=== PATIENT | female | born 1975 | race Caucasian/White ===

== ENCOUNTER → 2019-09-08 09:22 | Outpatient (CLI) | payer MEDICAID, SELFPAY ==
[2019-08-24 11:42] VITALS: BMI 46.7
--- NOTE | 2019-09-08 09:23 | US_ITS ---
STUDY: ULTRASOUND BREAST - LEFT REASON FOR EXAM: Female, 44 years old. Left breast mastitis. TECHNIQUE: Axial and longitudinal images of the LEFT breast were performed with a high resolution ultrasound transducer. # OF IMAGES: 42 COMPARISON: Comparison is made with prior mammogram done earlier today. FINDINGS: LEFT Breast: The palpable abnormality corresponds to a 5 mm x 9 mm x 5 mm cyst at the 12:00 position of the breast at 2 cm from nipple. Dense fibroglandular tissue are seen. Dilated retroareolar areolar ducts. US/Breast Limited Unilateral IMPRESSION: Dilated retroareolar ducts most likely secondary to the mastoiditis. No focal masses seen. 5 mm x 9 mm x 5 mm cyst at the 12:00 position of the breast at 2 cm from the nipple. ASSESSMENT CATEGORY: BIRADS Category 2: Benign. A letter regarding these results will be sent to the patient by the facility within 30 days. Electronically Signed: Fredrick Duong, at 11:21 EDT , Service support ,
--- NOTE | 2019-09-08 09:23 | BI_ITS ---
MAMMOGRAPHY - BILATERAL DIAGNOSTIC REASON FOR EXAM: Female, 44 years old. History of a left mastitis. Patient is on antibiotics. PERTINENT HISTORY: Non-contributory. TECHNIQUE: Digital bilateral breast xenia (3D mammographic acquisition) in the CC and MLO projections. 2-D mediolateral oblique (MLO) and craniocaudad (CC) views of both breasts were obtained. CAD: Full Field Digital Mammography with Computer Added Detection was performed. COMPARISON: None. Baseline examination. FINDINGS: Breast Composition: The breasts are heterogeneously dense, which may obscure small masses. There is a 3.2 cm x 2.4 cm irregular density in the superior lateral portion of the left breast corresponding to the suspicious area. Benign-appearing bilateral axillary lymph nodes. No other significant abnormalities are identified. BI/DIAG MAMM W/CAD, BILAT IMPRESSION: 3.2 cm x 2.4 cm irregular density in the superior lateral portion of the left breast most likely corresponding to the clinical area of mastitis. Correlation with ultrasound is recommended. ASSESSMENT CATEGORY: BIRADS Category 0: Incomplete. Need additional imaging evaluation. A letter regarding these results will be sent to the patient by the facility within 30 days. Approximately 10% of breast cancers are not detected by mammography. A normal mammogram should not delay biopsy of a clinically suspicious abnormality. Electronically Signed: Fredrick Duong, at 11:05 EDT , Service support ,
== END ==
PROVIDERS: Referring Provider Nurse Practitioner Women's Health; Visit Provider Nurse Practitioner Women's Health
DX: N63.20 Unspecified lump in the left breast, unspecified quadrant (principal)
CPT/HCPCS: 76642; 77062; 77066; G0279

== ENCOUNTER → 2019-09-28 | Outpatient (CLI) | payer MEDICAID, SELFPAY ==
[2019-09-28 13:17] VITALS: BMI 46.7
[2019-10-06 14:26] LABS: HPV APTIMA, High Risk Negative (Negative)
== END | disposition home or self-care (01) ==
LOC: LABSPEC 16:44
PROVIDERS: Referring Provider Nurse Practitioner Women's Health; Visit Provider Nurse Practitioner Women's Health
DX: Z12.4 Encounter for screening for malignant neoplasm of cervix (principal)
CPT/HCPCS: 87624; 88175; G0145

== ENCOUNTER 2019-10-03 09:17 | Day surgery (SDC) | payer MEDICAID, SELFPAY ==
[2019-09-12 13:56] VITALS: BMI 46.7
--- NOTE | 2019-09-27 08:51 | HP_ITS ---
Intake Vital Signs 09/12/19 BMI 46.7 09/12/19 Height 5 ft 6 in 09/12/19 Weight: 290 lb 09/12/19 BMI 46.7 09/12/19 BP 161/95 H 09/12/19 Blood Pressure Location Rt brachial 09/12/19 Position Sitting 09/12/19 Respiration 18 09/12/19 Pulse 88 09/12/19 Pulse Source Monitor 09/12/19 Temp 98.8 F 09/12/19 Temp Source Temporal 09/12/19 Pulse Oximetry (%) 96 09/12/19 Oxygen Delivery Method room air Intake Visit Reasons: DIFFUSE CYSTIC MASTOPATHY/ MAMM 09/07 Chief Complaint: NEW left breast pain and swelling [place] Required: No Is patient in pain?: No (On and off Left breast) Allergies No Known Allergies Allergy (Unverified 09/12/19 13:56) Medications NK 09/12/19 [History Confirmed 09/12/19] [facility] Medical History (Updated 09/12/19 @ 13:54 by Damaris Rao) Abnormal mammogram of left breast (Acute) Abnormal ultrasound of breast (Acute) Breast pain, left (Acute) Mastoiditis (Acute) Anxiety (Acute) Surgical History (Updated 09/12/19 @ 13:50 by Damaris Rao) History of tonsillectomy (Acute) Social History (Updated 09/27/19 @ 08:[address] 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 Patient states about 4 weeks ago she did have left breast mastitis and did get antibiotics at that time it was red/hot. Patient denies any other changes to the breast or trauma to the breast. Patient states that still seems a little swollen to her and that area still but there is no redness and there is no pain. Patient also has a family history of colon cancer in her dad at age 67 it was metastatic at that time. Patient has never had a colonoscopy. She states she has bowel movements daily denies any blood. Denies any chronic abdominal pain/nausea or vomiting. ROS General General: No weight change, fatigue, colon cancer or breast cancer Breast Breast: Yes breast enlargement (Mild swelling per patient at 12:00 on the left breast); no nipple discharge or breast pain Gastro Gastrointestinal: No abdominal pain, No nausea or vomiting, No diarrhea, No constipation, No blood in stool, No acid reflux, No hemorrhoids, No ulcers, No gallbladder problem, No black,tarry stools Exam Const General: cooperative, no acute distress, well developed Chest Breast inspection: normal inspection of the breasts, normal inspection of the axillae Breast Palpation: Yes normal palpation of the breasts (Unable to detect any increased swelling at the area about 12:00 from the nipple on the left breast, bedside ultrasound also did not show any obvious changes.), Yes normal palpation of the axillae, Yes no axillary lymphadenopathy, No nipple discharge Assessment & Plan Problems 1. Hx of mastitis Z87.898 2. Family history of malignant neoplasm of colon in first degree relative diagnosed when younger than 60 years of age Z80.0 Plan On exam is mostly like fibrocystic tissue might rest of her breast, patient states it did seem a little less swollen than did even last week. Plan to follow-up with patient and examined this area again in approximately 2 weeks- this may be done at the time of colonoscopy as well. Patient's father dx with colon cancer metastatic to liver diagnosed at age 57. Patient is due for screening colonoscopy. I have discussed the above with the patient. I have offered the patient colonoscopy for evaluation. I have explained the risks/benefits of the procedure and described the procedure. I have discussed the risks with the patient, including but not limited to: infection, bleeding, perforation of the GI tract requiring emergency surgery, inability to complete the procedure, injury to any internal organs, complications of anesthesia, etc. - the patient understands and agrees to proceed. I have answered all the patient's questions to the patient's satisfaction and the patient has no further questions. The patient has been given instructions for the colon cleansing preparation. One day of clears, MiraLAX Dulcolax split prep. Miller Mosesr: [phone] [facility] [address] [place] [address], [place] [address] Office: [phone] Orders Orders: Colonoscopy 09/12/19 Plan Detail Follow Up We will schedule colonoscopy and follow-up with breast exam at that time. Coding Level of Care Code Off vis,new,level 3 Diagnoses Hx of mastitis Z87.898 Family history of malignant neoplasm of colon in first degree relative diagnosed when younger than 60 years of age Z80.0 09/27/19 0851 <Electronically signed by Karoline Verdugo am, MD> Date _ Karoline Zacarias MD I have examined the patient the following changes are noted: Correction patient's father was diagnosed at age 67 with metastatic colon cancer patient still qualifies for early screening. Patient denies any further changes. Karoline Zacarias M.D. Pager: [phone] [facility] [address] [place] [address], [facility], [address] [address] Office: [phone]
[2019-09-28 13:17] VITALS: BMI 46.7
[2019-10-03] VITALS (7 sets, daily range): BP systolic 106–143; BP diastolic 52–71; PULSE 62–83; RESP 16; TEMP 36.2–37.2; O2SAT 92–98; BMI 46.7
[2019-10-03 09:47] LABS: Internal QC Validated? YES +Cl - CLEAR BKGD; Pregnancy, Urine Negative Negative
[2019-10-03] MEDS: Lactated Ringers 1,000 ML 100 ML IV (09:58)
--- NOTE | 2019-10-03 10:15 | COLBX_PTH ---
PATIENT: SASKIA HALEY LOC: EN U#:[id number] AGE/SX: 44/F ROOM: RE10/03/[address]: Dr. Karoline Zacarias MD : 1975 BED: DIS: 10/03/2019 SPEC #: [id number] RECD: 10/03/19 12:52 STATUS: AYAKA JOHN #: [id number] BRYANT: 10/03/19 10:[address]: Karoline Zacarias DEPT: SURGICAL PATHOLOGY RECD BY: Ying Lopez ENTERED: 10/04/19 08:02 SP TYPE: COLON BX OTHR DR: Laure Primary Care Phys Tissues: Sigmoid colon biopsy Procedures: Surgery Specimen Level IV HEADER OPERATION: Colonoscopy (MAC) PRE-OP DIAGNOSIS: Family history of colon cancer TISSUE SUBMITTED: Sigmoid polyp biopsy MICROSCOPIC DIAGNOSIS Sigmoid colon polyp, biopsy: Fragments of tubular adenoma. AM:steffany 10/05/19 MICROSCOPIC DESCRIPTION Slides are reviewed. GROSS DESCRIPTION Received in fixative is one container labeled with the patient's name and designated sigmoid polyp biopsy. The specimen consists of one irregular fragment of light garcia soft tissue that measures 0.4 x 0.3 x 0.1 cm. The specimen is totally submitted in one cassette. / SJ:steffany 10/04/19 TC:5 CPT: 78131
--- NOTE | 2019-10-03 10:50 | OP.CCLET_ITS ---
10/03/2019 No Primary Care Physician Re : Colonoscopy procedure for Arelis Olmstead Dear Care Physician This procedure was performed on Thursday, October 03, 2019. My impressions and recommendations are as follows: Impressions : - One less than 5 mm polyp in the sigmoid colon, removed with a cold biopsy forceps. Resected and retrieved. - The examination was otherwise normal on direct and retroflexion views. Recommendations : - Discharge patient to home. - Resume previous diet. - Continue present medications. - Await pathology results. - Repeat colonoscopy in 3 years for surveillance based on pathology results. My findings are described in the full procedure note, which is enclosed. If I can be of further assistance, please feel free to contact me at Doctor phone number(s): , Work: . Sincerely, MD Karoline Moses MD 10/03/2019 10:49:41 AM This report has been signed electronically.
--- NOTE | 2019-10-03 10:50 | OP.COLON_ITS ---
Patient Name: Arelis Olmstead Procedure Date: 10/03/2019 10:13 AM Date of : 1975 Age: 44 Procedure: Colonoscopy Indications: Colon cancer screening in patient at increased risk: Colorectal cancer in father Providers: Karoline Zacarias MD Referring MD: Ean Vela MD Medicines: Monitored Anesthesia Care Patient Profile: This is a 44 year old female. Last Colonoscopy: none. The patient's first colonoscopy is today. Complications: No immediate complications. Procedure: Pre-Anesthesia Assessment: - Prior to the procedure, a History and Physical was performed, and patient medications and allergies were reviewed. The patient's tolerance of previous anesthesia was also reviewed. The risks and benefits of the procedure and the sedation options and risks were discussed with the patient. All questions were answered, and informed consent was obtained. Prior Anticoagulants: The patient has taken no previous anticoagulant or antiplatelet agents. ASA Grade Assessment: Per anesthesia. After reviewing the risks and benefits, the patient was deemed in satisfactory condition to undergo the procedure. After I obtained informed consent, the scope was passed under direct vision. Throughout the procedure, the patient's blood pressure, pulse, and oxygen saturations were monitored continuously. The pediatric colonoscope was introduced through the anus and advanced to the cecum, identified by the appendiceal orifice, ileocecal valve and palpation. The colonoscopy was performed without difficulty. The patient tolerated the procedure well. The quality of the bowel preparation was good. Scope In: 10:20:49 AM Scope Withdrawal Time 0 hours 12 minutes 1 second Scope Out: 10:38:05 AM Total Procedure Duration Time 0 hours 17 minutes 16 seconds Findings: The perianal and digital rectal examinations were normal. A less than 5 mm polyp was found in the sigmoid colon. The polyp was sessile. The polyp was removed with a cold biopsy forceps. Resection and retrieval were complete. The exam was otherwise without abnormality on direct and retroflexion views. Impression: - One less than 5 mm polyp in the sigmoid colon, removed with a cold biopsy forceps. Resected and retrieved. - The examination was otherwise normal on direct and retroflexion views. Recommendation: - Discharge patient to home. - Resume previous diet. - Continue present medications. - Await pathology results. - Repeat colonoscopy in 3 years for surveillance based on pathology results. Procedure Code(s): --- Professional --- 89032, PT, Colonoscopy, flexible; with biopsy, single or multiple Diagnosis Code(s): --- Professional --- Z80.0, Family history of malignant neoplasm of digestive organs D12.5, Benign neoplasm of sigmoid colon CPT copyright 2017 [employer]. All rights reserved. The codes documented in this report are preliminary and upon inbound call center agent review may be revised to meet current compliance requirements. MD Karoline Moses MD 10/03/2019 10:49:41 AM This report has been signed electronically. Number of Addenda: 0 Note Initiated On: 10/03/2019 10:13 AM
== END 2019-10-03 11:32 | disposition home or self-care (01) ==
LOC: EN 09:17 → AC 09:18
PROVIDERS: Anesthesiology; Referring Provider Surgery; Visit Provider Surgery
PROC: 0DJD8ZZ Inspection of Lower Intestinal Tract, Via Natural or Artificial Opening Endoscopic (ICD-10-PCS; CPT 45378; principal; 2019-10-03 10:10)
DX: D12.5 Benign neoplasm of sigmoid colon (principal); Z80.0 Family history of malignant neoplasm of digestive organs; Z11.59 Encounter for screening for other viral diseases
CPT/HCPCS: 45380; 81025; 87635; 88305; G2023; J7120; U0003

== ENCOUNTER 2020-06-15 11:43 | Outpatient (RCR) | payer MEDICAID, SELFPAY ==
[2019-10-03 09:43] VITALS: BMI 46.7
== END 2020-08-28 23:59 ==
LOC: IMMUN 11:43
PROVIDERS: Visit Provider Family Medicine
DX: Z23 Encounter for immunization (principal)
CPT/HCPCS: 0001A; 0002A; 91300

== ENCOUNTER → 2021-01-03 | Outpatient (CLI) | payer MEDICAID, SELFPAY | END | disposition home or self-care (01) | LOC: LABSPEC 09:22 | PROVIDERS: Visit Provider Physician Assistant | DX: Z11.52 Encounter for screening for COVID-19 (principal) | CPT/HCPCS: 87635; U0005; U0003 ==

== ENCOUNTER → 2023-12-16 | Outpatient (CLI) | payer MEDICAID, SELFPAY ==
[2023-12-16 12:20] LABS: Absolute Lymphocyte Count 2.15 X10^3/uL (0.83-4.51); Absolute Neutrophil Count 4.5 X10^3/uL (2.0-7.7); Basophil# 0.06 X10^3/uL; Basophil% 0.8 % (0-1); Eosinophil# 0.23 X10^3/uL; Eosinophils% 3.1 % (0-5); Hemoglobin 13.2 g/dL (12.0-15.0); Lymphocyte # 2.15 X10^3/ul (0.83-4.51); Lymphocyte % 28.9 % (19-41); Mean Corpuscular Hgb 28.9 pg (27.0-32.0); Mean Corpuscular Volume 87.7 fL (81-99); Mean Platelet Vol. 10.7 fl (6.2-12.0); Monocyte# 0.53 X10^3/uL; Monocyte% 7.1 % (0-10); NRBC Flagged by Analyzer 0 % (0-5); Neutrophil # 4.45 X10^3/uL (2.7-7.7); Neutrophil % 59.8 % (47-70); Platelet Count 323 K/mm3 (150-450); RBC Distribution Width CV 13.7 % (11.6-14.6); RBC Distribution Width SD 43.8 fl (35.1-43.9); Red Blood Count 4.56 M/mm3 (4.2-5.4); White Blood Count 7.4 K/mm3 (4.4-11.0)
[2023-12-16 12:53] LABS: AST(SGOT) 17 U/L (15-37); Alanine Aminotransfer ALT/SGPT 40 U/L (13-56); Albumin, Serum 3.8 g/dL (3.2-5.0); Alkaline Phosphatase 94 U/L (45-117); Anion Gap 6 (5-15); BUN 10 mg/dL (7-18); BUN/Creat Ratio 12.9 RATIO (10-20); Calcium,Total 9.1 mg/dL (8.5-10.1); Chloride 106 mmol/L (98-107); Cholesterol 182 mg/dL (200); Creatinine, Serum 0.78 mg/dL (0.55-1.02); EST Glomerular Filtration Rate 84 mL/min (>60); Est Glom Filt Rate - Afr Amer 101 mL/min (>60); Globulin 3.7 g/dL (2.2-4.2); Glucose 101 mg/dL (74-106); High Density Lipoprotein 54 mg/dL; Potassium 4.9 mmol/L (3.5-5.1); Protein, Total 7.5 g/dL (6.4-8.2); Sodium Level 136 mmol/L (136-145); Triglycerides 61 mg/dL; Very Low Density Lipoprotein 12 mg/dL (5-40)
== END | disposition home or self-care (01) ==
PROVIDERS: PCP Internal Medicine; Referring Provider Internal Medicine; Visit Provider Internal Medicine
DX: Z00.00 Encounter for general adult medical examination without abnormal findings (principal)
CPT/HCPCS: 36415; 80053; 80061; 85025

== ENCOUNTER → 2023-12-24 | Outpatient (CLI) | payer MEDICAID, SELFPAY ==
--- NOTE | 2023-12-24 08:25 | BI_ITS ---
MAMMOGRAPHY - BILATERAL SCREENING REASON FOR EXAM: Female, 48 years old. Routine annual screening examination. PERTINENT HISTORY: Non-contributory. TECHNIQUE: Digital bilateral breast ceci (3D mammographic acquisition) in the CC and MLO projections. 2-D mediolateral oblique (MLO) and craniocaudad (CC) views of both breasts were obtained. CAD: Full Field Digital Mammography with Computer Added Detection was performed. COMPARISON: Comparison is made with prior study dated September 08, 2019. FINDINGS: Breast Composition: The breasts are heterogeneously dense, which may obscure small masses. There are no dominant masses or suspicious calcifications. Stable small benign-appearing bilateral axillary lymph nodes. No other significant abnormalities are identified. There has been no significant change since the prior study. BI/SCRN MAMM (CAD)W/CECI BILAT IMPRESSION: Stable bilateral screening mammogram. Yearly follow-up mammogram recommended. (A) ASSESSMENT CATEGORY: BIRADS Category 2: Benign. A letter regarding these results will be sent to the patient by the facility within 30 days. Approximately 10% of breast cancers are not detected by mammography. A normal mammogram should not delay biopsy of a clinically suspicious abnormality. [id number] Electronically Signed: Fredrick Duong MD at 10:36 EDT ,
== END | disposition home or self-care (01) ==
LOC: OPBI 08:25
PROVIDERS: PCP Internal Medicine; Referring Provider Internal Medicine; Visit Provider Internal Medicine
DX: Z12.31 Encounter for screening mammogram for malignant neoplasm of breast (principal)
CPT/HCPCS: 77063; 77067

== ENCOUNTER 2023-12-30 08:12 | Day surgery (SDC) | payer MEDICAID, SELFPAY ==
[2023-12-30] VITALS (7 sets, daily range): BP systolic 91–140; BP diastolic 56–84; PULSE 59–75; RESP 16–18; TEMP 36.2–36.6; O2SAT 96–98; BMI 46.9
[2023-12-30 08:32] LABS: Internal QC Validated? YES +Cl - CLEAR BKGD; Pregnancy, Urine Negative Negative
--- NOTE | 2023-12-30 08:47 | H&P.OPEN ---
[facility] - General General Date of Service: 12/30/23 HPI Narrative SASKIA HALEY, is a 48 F who presents for a screening colonoscopy due to history of colon polyps as well as family history. Patient last colonoscopy was September 2019. Patient's father was diagnosed with metastatic colon cancer at age 65. Patient has bowel movements daily denies any blood. Patient denies any chronic abdominal pain/nausea/vomiting/reflux. COUNT INCLUDES THE [facility] Medical History (Updated 12/30/23 @ 08:[address] Karoline Zacarias MD) Wears glasses Non-smoker Personal history of colonic polyps Family history of colon cancer Colon cancer screening Preventative health care Back problem Mastoiditis Anxiety Home Medications ?Medication ?Instructions ?Recorded ?Last Taken ?Type Vitamin D and Immune Complex 1 tab PO DAILY 12/16/23 Unknown History magnesium blend 2 tab PO DAILY 12/16/23 Unknown History omegas and tumeric 2 tab PO DAILY 12/16/23 Unknown History Allergy/AdvReac Type Severity Reaction Status Date / Time No Known Allergies Allergy Verified 12/30/23 08:32 Family History (Updated 12/17/23 @ 14:14 by Dinorah Coughlin) Father Cancer Colorectal cancer Colon cancer, Onset Age: 65 survives Mother Acute anxiety Depression Grandfather Myocardial infarction 52 Other High cholesterol Thyroid disorder Surgical History (Updated 12/18/23 @ 09:03 by Verónica Horton) History of wisdom tooth extraction History of tonsillectomy (~1979) Hx of colonoscopy Social History adopted: No household members: spouse and other details: 3 kids current occupational status: employed current occupational exposures/hazards: No pets and animals: Yes pets and animals: dog(s) Smoking Status: Never smoker second hand exposure: No alcohol intake: never substance use type: does not use diet: other caffeine: Yes Type: coffee what type of physical activity do you participate in: walking frequency: 3-4 times per week duration: 15-30 minutes/day seatbelt use: always do you feel safe at home: Yes 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 Past Medical/Surgical History Planned Operation Planned Operative Procedure(s): CSCOPE S.O.S: No Previous Hospitalizations/Surgeries HX Hospitalizations: No HX of Surgeries: TONSILS Any Problems With Anesthesia: No You/Your Family Experience Fever (Hyperthermia) With Anes: No Cholinesterase deficiency: No Cardiovascular Hx Chest Pain within Last 2 months: No Hx of Irregular Heartbeat and/or Afib: No Hx Heart Attack: No Hx Congestive Heart Failure: No Hx Rheumatic Fever: No Hx Hypertension: No Hx Internal Defibrillator: No Hx Pacemaker: No Hx Cardiac Catheterization: No Hx Cardiac Surgery/Stents/Etc.: No Hx Stress Test: No Hx Pain in Legs when Walking/Leg Cramps: No Respiratory Chronic Cough: No HX of Shortness of Breath: No Hoarseness: No Hx Chronic Obstructive Pulmonary Disease (COPD): No Hx Asthma: No Hx Emphysema: No Hx Sleep Apnea: No Hx Respiratory Tract Infection/Cold (presently): No Do You Snore Loudly (louder than talking or can be heard): No Do You Often Feel Tired/ Fatigued/ Sleepy Dring Daytime?: No Has Anyone Observed You Stop Breathing During Sleep?: No Result (for STOP score): Negative Hx Smoking: No Smoking Status: Never smoker Gastrointestinal Hx Gastrointestinal Disorders: No Hx Gastrointestinal Bleed: No Hx Ulcer: No Hx Hiatal Hernia: No Difficulty Chewing/Swallowing: No Special diet followed at home: No Hx Unplanned Weight Loss of 20#: No HX Unplanned Weight Gain of 20#: No Neurological Hx Seizures: No HX Syncope/Blackout Spells/Unconsciousness: No Hx Transient Ischemic Attacks (TIA): No Hx Multiple Sclerosis: No Hx Parkinson's Disease: No Hx Head/Neck Injury: No Hx Headaches: No Hx Back Injury/Pain: Yes Recent Onset of Speech Difficulty: No Restless Legs: No Does patient have nerve stimulator: No Blood Disorder Hx Leukemia: No Bleeding Tendencies: No Hx Deep Vein Thrombosis: No Hx High Cholesterol: No Blood Transmitted Disease: No Hx Hepatitis: No Hx Cirrhosis: No Hx Anemia: No Hx Blood Disorders: No Reproduction : No Is Patient Lactating: No Hx Hysterectomy: No Hx Tubal Ligation: No Are You Post Menopause: No Genitourinary Hx Renal Disease: No Musculoskeletal Hx Arthritis: No Hx Rheumatoid Arthritis: No Hx Gout: No Recent Onset of an Orthopedic Problem: No Endocrine Hx Diabetes: No Thyroid Disease: No Hx Steroid Therapy: No Psycho/Social Hx Substance Use: No Hx Alcohol Use: No Hx Anxiety: Yes Hx Depression: No Mental Illness: No Hx Dementia: No Miscellaneous Hx Cancer: No Recent Exposure to Contagious Disease: No Hx of C-Diff: No Any Loose Teeth: No Allergies No Known Allergies Allergy (Verified 12/30/23 08:32) Discharge Is Pt Admitted From a Senior Care, or a Retirement: No After D/C, Where Do you Plan to Go: Return Home Vital Signs Vital Signs Vital Signs: 12/30/23 08:33 12/30/23 08:33 Temperature 97.1 F L Temperature Source Temporal Pulse Rate 75 Respiratory Rate 16 Respiratory Pattern Normal Blood Pressure 140/84 H Blood Pressure Mean 102 Blood Pressure Source Monitor Blood Pressure Position Semi-Fowlers Blood Pressure Location Left Arm Pulse Ox 98 Oxygen Delivery Method Room Air Weight Weight: 282 lb 3.067 oz Body Mass Index (BMI) 46.9 Physical Exam Const alert, oriented x3 and no apparent distress HEENT normocephalic and head/scalp atraumatic Resp normal respiratory effort Cardio regular rate GI soft to palpation and non-tender; Negative for non-distended Palpation: Negative for guarding Extremity no clubbing, cyanosis or edema Skin no rashes or lesions noted Neuro CN's II-XII intact bilaterally Psych mental status grossly normal Assessment & Plan Assessment/Plan (1) Personal history of colonic polyps: (2) Family history of colon cancer: Surgery Risks - Colonoscopy I discussed with the patient the risks of the procedure: Yes Risks Include but are not Limited To: Risks include but are not limited to: Bleeding, perforation requiring further surgery, inability to complete colonoscopy requiring barium enema.
--- NOTE | 2023-12-30 08:50 | PCM.PRE.AN2 ---
ASA Classification* ASA Classification ASA Classification: 3 Assessment & Plan Anesthesia* Anesthesia Assessment Anesthesia Assessment: Discussed sedation and/or anesthesia options, risks, benefits, and alternatives with patient/parents/legal guardian/POA. Questions invited. The patient/parents/legal guardian/POA seems to understand and agrees to proceed with anesthesia plan. Reviewed the physical assessment, medical history, allergy history and patient home medications list prior to surgery/procedure/anesthetic and documented any changes. Performed airway and anesthesia risk assessments. Anesthesia Type Anesthesia Type: MAC Anesthesia Focused Assessment* Temperature: 97.1 F Pulse Rate: 75 Blood Pressure: 140/84 Respiratory Rate: 16 Pulse Ox: 98 Airway Assessment Mouth opens: >3 cm Mallampati Score: II Focused Labs Anesthesia Preop lab: CBC WBC 7.4 K/mm3 (4.4-11.0) 12/16/23 10:05 RBC 4.56 M/mm3 (4.2-5.4) 12/16/23 10:05 Hgb 13.2 g/dL (12.0-15.0) 12/16/23 10:05 Hct 40.0 % (37-47) 12/16/23 10:05 Plt Count 323 K/mm3 (150-450) 12/16/23 10:05 CHEMISTRY Potassium 4.9 mmol/L (3.5-5.1) 12/16/23 10:05 Sodium 136 mmol/L (136-145) 12/16/23 10:05 BUN 10 mg/dL (7-18) 12/16/23 10:05 Creatinine 0.78 mg/dL (0.55-1.02) 12/16/23 10:05 Glucose 101 mg/dL (74-106) 12/16/23 10:05 COAG Urine Test Negative Negative 12/30/23 08:17 Pre-Assessment Diagnosis/Proposed Procedure Planned Operative Procedure(s): CSCOPE Anesthesia History 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 When Was Last Pacemaker Check QUESTION #4 FULL TEXT: You/Your Family Experience fever (hyperthermia) with Anesthesia Last Oral Intake Last Oral intake: Last Oral Intake NPO since 04:30 12/30/23 08:33 Meds taken in AM with sips of water? Meds patient instructed to take am of surgery PONV PONV - vertical punch operator: PONV - vertical punch operator Female Yes 12/18/23 08:59 HX of Motion Sickness No 12/18/23 08:59 HX of N/V After Surgery No 12/18/23 08:59 Non-Smoker Yes 12/18/23 08:59 Duration of Surgery greater No 12/18/23 08:59 than 60 minutes Number of Risk Factors 2 12/18/23 08:59 PONV Score Moderate Risk 12/18/23 08:59 Height & Weight Height & Weight: Anesthesia: Height & Weight Height 5 ft 5 in 12/30/23 08:33 Weight: 128 kg 12/30/23 08:33 Body Mass Index (BMI) 46.9 12/30/23 08:33 Respiratory Assessment Respiratory Assessment - vertical punch operator: Respiratory Tract Infection Hx - vertical punch operator Hx Respiratory Tract Infection No 12/30/23 08:48 STOP Sleep Apnea STOP Sleep Apnea - vertical punch operator: STOP Sleep Apnea - vertical punch operator Hx Hypertension No 12/30/23 08:48 Hx Sleep Apnea No 12/30/23 08:48 CPAP BIPAP Do you snore loudly (louder No 12/30/23 08:48 than talking or can be heard Do you often feel tired/ No 12/30/23 08:48 fatigued/ sleepy during daytime? Has anyone observed you stop No 12/30/23 08:48 breathing during sleep? STOP Results Negative 12/30/23 08:50 QUESTION #5 FULL TEXT : Do you snore loudly (louder than talking or can be heard through closed doors)? 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 Specify any problems Hx of Preganancy in last 3 N/A 12/18/23 08:59 Months Nurse Filling Out Transfusion NBUCHER 12/18/23 08:59 & Questions: Date: 12/18/23 12/18/23 08:59 Time: 09:00 12/18/23 08:59 Patient unable to answer at this time (ie. confused, unrespo /Reproduction History /Reproductive History - vertical punch operator: /Reproductive Hx- vertical punch operator Hx Now No 12/30/23 08:48 Gestational Age (in weeks): EDC: Hx Hx Para Hx Section SAB No 12/18/23 08:59 PFSH Medical History Wears glasses Non-smoker Personal history of colonic polyps Family history of colon cancer Colon cancer screening Preventative health care Back problem Mastoiditis Anxiety Home Medications ?Medication ?Instructions ?Recorded ?Last Taken ?Type Vitamin D and Immune Complex 1 tab PO DAILY 12/16/23 Unknown History magnesium blend 2 tab PO DAILY 12/16/23 Unknown History omegas and tumeric 2 tab PO DAILY 12/16/23 Unknown History Allergy/AdvReac Type Severity Reaction Status Date / Time No Known Allergies Allergy Verified 12/30/23 08:32 Family History Father Cancer Colorectal cancer Colon cancer, Onset Age: 65 survives Mother Acute anxiety Depression Grandfather Myocardial infarction 52 Other High cholesterol Thyroid disorder Surgical History History of wisdom tooth extraction History of tonsillectomy (~1979) Hx of colonoscopy Social History adopted: No household members: spouse and other details: 3 kids current occupational status: employed current occupational exposures/hazards: No pets and animals: Yes pets and animals: dog(s) Smoking Status: Never smoker second hand exposure: No alcohol intake: never substance use type: does not use diet: other caffeine: Yes Type: coffee what type of physical activity do you participate in: walking frequency: 3-4 times per week duration: 15-30 minutes/day seatbelt use: always do you feel safe at home: Yes 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
--- NOTE | 2023-12-30 11:01 | PCM.POST.ANE ---
Anesthesia: Postop Eval I Current Vital Signs Temperature: 97.9 F Pulse Rate: 60 Blood Pressure: 91/56 Respiratory Rate: 18 Pulse Ox: 97 Assessment Airway patent: Yes Spontaneous unlabored respirations: Yes nausea: No Vomiting: No Anesthesia Complication: No Fluid Hydration Crystalloid volume administer (ml): 10 Total IV fluid infused: 10 Progress Note Anesthesia document: Postop Eval 1 completed: Yes
--- NOTE | 2023-12-30 11:03 | OP.COLON_ITS ---
Patient Name: Arelis Olmstead Procedure Date: 12/30/2023 10:32 AM Date of : 1975 Age: 48 Procedure: Colonoscopy Indications: High risk colon cancer surveillance: Personal history of colonic polyps, Family history of colon cancer in a first-degree relative before age 60 years Providers: Karoline Zacarias MD Referring MD: Lucina Patterson MD Medicines: Monitored Anesthesia Care Patient Profile: This is a 48 year old female. Last Colonoscopy: September 2019. Complications: No immediate complications. Procedure: Pre-Anesthesia Assessment: - Prior to the procedure, a History and Physical was performed, and patient medications and allergies were reviewed. The patient's tolerance of previous anesthesia was also reviewed. The risks and benefits of the procedure and the sedation options and risks were discussed with the patient. All questions were answered, and informed consent was obtained. Prior Anticoagulants: The patient has taken no anticoagulant or antiplatelet agents. ASA Grade Assessment: Per anesthesia. After reviewing the risks and benefits, the patient was deemed in satisfactory condition to undergo the procedure. After I obtained informed consent, the scope was passed under direct vision. Throughout the procedure, the patient's blood pressure, pulse, and oxygen saturations were monitored continuously. The colonoscope was introduced through the anus and advanced to the cecum, identified by the appendiceal orifice, ileocecal valve and palpation. The colonoscopy was performed without difficulty. The patient tolerated the procedure well. The quality of the bowel preparation was good. Scope In: 10:40:19 AM Scope Withdrawal Time 0 hours 8 minutes 57 seconds Scope Out: 10:56:28 AM Total Procedure Duration Time 0 hours 16 minutes 9 seconds Findings: The perianal and digital rectal examinations were normal. Multiple small-mouthed diverticula were found in the sigmoid colon and descending colon. The entire examined colon appeared normal on direct and retroflexion views. Impression: - Diverticulosis in the sigmoid colon and in the descending colon. - The entire examined colon is normal on direct and retroflexion views. - No specimens collected. Recommendation: - Discharge patient to home. - Resume previous diet. - Continue present medications. - Repeat colonoscopy in 5 years for surveillance. Procedure Code(s): --- Professional --- G0105, PT, Colorectal cancer screening; colonoscopy on individual at high risk Diagnosis Code(s): --- Professional --- Z86.010, Personal history of colonic polyps Z80.0, Family history of malignant neoplasm of digestive organs K57.30, Diverticulosis of large intestine without perforation or abscess without bleeding CPT copyright 2021 [employer]. All rights reserved. The codes documented in this report are preliminary and upon health information coder review may be revised to meet current compliance requirements. MD Karoline Moses MD 12/30/2023 11:03:34 AM This report has been signed electronically. Number of Addenda: 0 Note Initiated On: 12/30/2023 10:32 AM
--- NOTE | 2023-12-30 11:04 | OP.CCLET_ITS ---
12/30/2023 Lucina Patterson MD [address] [place] [address] [place] [address] Re : Colonoscopy procedure for Arelis Bondkins Dear Dr. Patterson This procedure was performed on Saturday, December 30, 2023. My impressions and recommendations are as follows: Impressions : - Diverticulosis in the sigmoid colon and in the descending colon. - The entire examined colon is normal on direct and retroflexion views. - No specimens collected. Recommendations : - Discharge patient to home. - Resume previous diet. - Continue present medications. - Repeat colonoscopy in 5 years for surveillance. My findings are described in the full procedure note, which is enclosed. If I can be of further assistance, please feel free to contact me at Doctor phone number(s): , Work: . Sincerely, MD Karoline Moses MD 12/30/2023 11:03:34 AM This report has been signed electronically.
--- NOTE | 2023-12-30 11:13 | POSTOPAN2_ITS ---
Anesthesia Postop Eval I Sum Postop Eval Completion status Anesthesia document: Postop Eval 1 completed: Yes Anesthesia Postop Eval I Summary Anesthesia Postop Eval I Summary: Anesthesia Postop Eval I: Assessment Summary Airway patent Yes 12/30/23 11:01 BACK SHOE OPERATOR.CSIR Spontaneous unlabored Yes 12/30/23 11:01 BACK SHOE OPERATOR.CSIR respirations Mental status nausea No 12/30/23 11:01 BACK SHOE OPERATOR.CSIR Vomiting No 12/30/23 11:01 BACK SHOE OPERATOR.CSIR Anesthesia Postop Eval I: Fluid Summary Crystalloid volume administer 10 12/30/23 11:01 BACK SHOE OPERATOR.CSIR (ml) Colloids volume administered ( ml) Blood Product volume administered (ml) Total IV fluid infused 10 12/30/23 11:01 BACK SHOE OPERATOR.CSIR Anesthesia Postop Eval I: Summary Notes Anesthesia Complication No 12/30/23 11:01 BACK SHOE OPERATOR.CSIR Anesthesia Complication Comment: Post-operative progress note Anesthesia: Postop Eval II Evaluation Mental status: Awake Pain Level: 0 nausea: No Vomiting: No
--- NOTE | 2023-12-30 11:13 | PCM.POSTANE2 ---
Anesthesia Postop Eval I Sum Postop Eval Completion status Anesthesia document: Postop Eval 1 completed: Yes Anesthesia Postop Eval I Summary Anesthesia Postop Eval I Summary: Anesthesia Postop Eval I: Assessment Summary Airway patent Yes 12/30/23 11:01 REHABILITATION PROGRAM COORDINATOR.CSIR Spontaneous unlabored Yes 12/30/23 11:01 REHABILITATION PROGRAM COORDINATOR.CSIR respirations Mental status nausea No 12/30/23 11:01 REHABILITATION PROGRAM COORDINATOR.CSIR Vomiting No 12/30/23 11:01 REHABILITATION PROGRAM COORDINATOR.CSIR Anesthesia Postop Eval I: Fluid Summary Crystalloid volume administer 10 12/30/23 11:01 REHABILITATION PROGRAM COORDINATOR.CSIR (ml) Colloids volume administered ( ml) Blood Product volume administered (ml) Total IV fluid infused 10 12/30/23 11:01 REHABILITATION PROGRAM COORDINATOR.CSIR Anesthesia Postop Eval I: Summary Notes Anesthesia Complication No 12/30/23 11:01 REHABILITATION PROGRAM COORDINATOR.CSIR Anesthesia Complication Comment: Post-operative progress note Anesthesia: Postop Eval II Evaluation Mental status: Awake Pain Level: 0 nausea: No Vomiting: No
== END 2023-12-30 11:38 | disposition home or self-care (01) ==
LOC: EN 08:12 → AC 08:13
PROVIDERS: PCP Internal Medicine; Referring Provider Internal Medicine; Visit Provider Surgery
PROC: 0DJD8ZZ Inspection of Lower Intestinal Tract, Via Natural or Artificial Opening Endoscopic (ICD-10-PCS; CPT 45378; principal; 2023-12-30 09:40)
DX: Z12.11 Encounter for screening for malignant neoplasm of colon (principal); K57.30 Diverticulosis of large intestine without perforation or abscess without bleeding; Z80.0 Family history of malignant neoplasm of digestive organs; Z86.0100 Personal history of colon polyps, unspecified
CPT/HCPCS: 45378; 81025; A4216; J2405